=== PATIENT | female | born 1985 | race Caucasian/White ===

== ENCOUNTER 2018-12-08 22:21 | Outpatient (CLI) | payer MEDICAID | END 2018-12-08 22:51 | disposition home or self-care (01) | LOC: OBT 22:21 → L-D 22:23 → OBT 22:51 | DX: O26.893 Other specified pregnancy related conditions, third trimester (principal); R07.9 Chest pain, unspecified; R06.02 Shortness of breath; O36.8130 Decreased fetal movements, third trimester, not applicable or unspecified; Z3A.31 31 weeks gestation of pregnancy | CPT/HCPCS: 76818 ==

== ENCOUNTER 2018-12-08 23:09 | Emergency (ER) | payer MEDICAID ==
[2018-12-09 00:02] LABS: ADD MAN DIFF? NO
[2018-12-09 00:04] LABS: BASOPHILS % 0.4 % (0.0-2.0); EOSINOPHILS # 0.2 10^3/ul (0.0-0.5); EOSINOPHILS % 2.1 % (0.0-7.0); HEMATOCRIT 32.6 % (37.0-47.0); HEMOGLOBIN 10.5 g/dl (12.0-16.0); LYMPHOCYTES # 2.4 10^3/ul (0.8-2.9); LYMPHOCYTES % 23.2 % (15.0-51.0); MEAN CORPUSCULAR HEMOGLOBIN 27.6 pg (29.0-33.0); MEAN CORPUSCULAR HGB CONC 32.2 g/dl (32.0-37.0); MEAN CORPUSCULAR VOLUME 85.8 fl (82.0-101.0); MEAN PLATELET VOLUME 12.1 fl (7.4-10.4); MONOCYTE # 0.9 10^3/ul (0.3-0.9); MONOCYTES % 8.4 % (0.0-11.0); NEUTROPHIL # 6.7 10^3/ul (1.6-7.5); NEUTROPHILS % 64.4 % (39.0-77.0); PLATELET COUNT 197 10^3/UL (140-415); RED CELL DISTRIBUTION WIDTH 13.9 % (11.5-14.5)
[2018-12-09 00:04] LABS: WHITE BLOOD COUNT 10.3 10^3/ul (4.8-10.8)
[2018-12-09 00:26] LABS: ALBUMIN 3.3 g/dl (3.3-4.9); ALBUMIN/GLOBULIN RATIO 0.97; ALKALINE PHOSPHATASE 107 IU/L (42-121); ANION GAP 6 (5-13); ASPARTATE AMINO TRANSFERASE 16 IU/L (15-46); BILIRUBIN,INDIRECT 0.3 mg/dl (0-1.1); BILIRUBIN,TOTAL 0.3 mg/dl (0.2-1.3); BLOOD UREA NITROGEN 4 mg/dl (7-20); CALCIUM 8.9 mg/dl (8.4-10.2); CARBON DIOXIDE 26 mmol/L (21-31); CHLORIDE 107 mmol/L (97-110); CREATININE 0.46 mg/dl (0.44-1.00); Estimated GFR > 60 mL/min (>60); GLUCOSE 88 mg/dl (70-220); POTASSIUM 3.6 mmol/L (3.5-5.1); SODIUM 139 mmol/L (135-144); TOTAL PROTEIN 6.7 g/dl (6.1-8.1)
[2018-12-09 00:35] LABS: ALANINE AMINOTRANSFERASE 11 IU/L (13-69)
[2018-12-09 00:37] LABS: TROPONIN-I < 0.012 ng/ml (0.000-0.120)
== END 2018-12-09 01:31 | disposition home or self-care (01) ==
LOC: E/R 12-09 01:31
DX: R07.9 Chest pain, unspecified (principal); R40.2142 Coma scale, eyes open, spontaneous, at arrival to emergency department; R40.2252 Coma scale, best verbal response, oriented, at arrival to emergency department; R40.2362 Coma scale, best motor response, obeys commands, at arrival to emergency department
CPT/HCPCS: 80053; 84484; 85025; 93005; 99284-25

== ENCOUNTER 2019-02-05 12:37 | Inpatient (IN) | payer MEDICAID ==
[2019-02-05] MEDS: OXYTOCIN 30 UNITS/LR 500 ML IV ×2 (07:00→21:01)
[2019-02-05] MEDS ORDERED: CARBOPROST 250 MCG INJ IM ×2 (14:30→22:30)
[2019-02-05] MEDS ORDERED: OXYTOCIN 30 UNITS/LR 500 ML IV ×2 (14:30→22:30)
[2019-02-05] MEDS ORDERED: MISOPROSTOL 200 MCG TAB PR ×2 (14:30→22:30)
[2019-02-05] MEDS ORDERED: CEFAZOLIN 2 GM/50 ML (PMX) 50 ML IVPB (14:30)
[2019-02-05] MEDS ORDERED: METHYLERGONOVINE 0.2 MG INJ IM ×2 (14:30→22:30)
[2019-02-05 14:37] LABS: ADD MAN DIFF? NO
[2019-02-05 14:40] LABS: WHITE BLOOD COUNT 10.2 10^3/ul (4.8-10.8)
[2019-02-05 14:40] LABS: BASOPHILS % 0.3 % (0.0-2.0); EOSINOPHILS # 0.1 10^3/ul (0.0-0.5); EOSINOPHILS % 1.1 % (0.0-7.0); HEMATOCRIT 34.6 % (37.0-47.0); HEMOGLOBIN 10.6 g/dl (12.0-16.0); LYMPHOCYTES # 2.3 10^3/ul (0.8-2.9); LYMPHOCYTES % 22.8 % (15.0-51.0); MEAN CORPUSCULAR HEMOGLOBIN 25.4 pg (29.0-33.0); MEAN CORPUSCULAR HGB CONC 30.6 g/dl (32.0-37.0); MEAN PLATELET VOLUME 12.9 fl (7.4-10.4); MONOCYTE # 0.7 10^3/ul (0.3-0.9); MONOCYTES % 7.2 % (0.0-11.0); NEUTROPHIL # 6.9 10^3/ul (1.6-7.5); NEUTROPHILS % 67.4 % (39.0-77.0); PLATELET COUNT 163 10^3/UL (140-415); RED BLOOD COUNT 4.17 10^6/ul (4.20-5.40); RED CELL DISTRIBUTION WIDTH 15.8 % (11.5-14.5)
[2019-02-05] MEDS: LACTATED RINGER'S 1,000 ML IV ×2 (14:45→15:00)
[2019-02-05 14:59] LABS: INR 0.93; PARTIAL THROMBOPLASTIN TIME 26.7 Sec (23.0-35.0); PROTIME 12.6 Sec (11.9-14.9)
[2019-02-05 15:29] LABS: HEPATITIS B SURFACE ANTIGEN NEGATIVE (NEGATIVE)
[2019-02-05] MEDS ORDERED: ONDANSETRON 4 MG INJ IV ×2 (17:30)
[2019-02-05] MEDS ORDERED: HYDROmorphONE 0.5 MG/0.5 ML SYG IV ×2 (17:30)
[2019-02-05] MEDS ORDERED: METOCLOPRAMIDE 10 MG INJ IV (17:30)
[2019-02-05] MEDS ORDERED: NALOXONE (0.4 MG/ML) INJ IV (17:30)
[2019-02-05] MEDS ORDERED: ALBUTEROL 0.083% (NEB) 2.5 MG/3 ML AMP HHN (17:30)
[2019-02-05] MEDS ORDERED: HYDROmorphONE 1 MG/5 ML IV SYRINGE IV ×2 (17:30)
[2019-02-05] MEDS ORDERED: FENTAnyl 50 MCG/ML VIAL IV ×2 (17:30)
[2019-02-05] MEDS ORDERED: DIPHENHYDRAMINE 50 MG INJ IV ×2 (17:30)
[2019-02-05] MEDS ORDERED: KETOROLAC 30 MG INJ IV (17:30)
[2019-02-05] MEDS: ONDANSETRON 4 MG INJ IV (18:21)
[2019-02-05] MEDS: METOCLOPRAMIDE 10 MG INJ IV (18:21)
[2019-02-05] MEDS ORDERED: PHENYLephrine (100 MCG/ML) 10ML SYG (18:28)
[2019-02-05] MEDS ORDERED: EPHEDrine 25 MG/5 ML SYG (18:28)
[2019-02-05] MEDS ORDERED: morphine SULFATE/PF (10 MG/10 ML) INJ (18:28)
[2019-02-05] MEDS: KETOROLAC 30 MG INJ IV (20:56)
[2019-02-05] MEDS ORDERED: METHYLERGONOVINE 0.2 MG TAB PO (22:30)
[2019-02-06] MEDS: DEXTROSE 5%-LR 1,000 ML IV ×4 (01:18→14:20)
[2019-02-06 08:00] LABS: ADD MAN DIFF? NO
[2019-02-06 08:03] LABS: WHITE BLOOD COUNT 9.1 10^3/ul (4.8-10.8)
[2019-02-06 08:03] LABS: ABNORMAL IP MESSAGE 1; BASOPHILS % 0.2 % (0.0-2.0); EOSINOPHILS % 0.3 % (0.0-7.0); HEMATOCRIT 30.4 % (37.0-47.0); HEMOGLOBIN 9.4 g/dl (12.0-16.0); LYMPHOCYTES # 1.5 10^3/ul (0.8-2.9); LYMPHOCYTES % 16.2 % (15.0-51.0); MEAN CORPUSCULAR HEMOGLOBIN 25.4 pg (29.0-33.0); MEAN CORPUSCULAR HGB CONC 30.9 g/dl (32.0-37.0); MEAN CORPUSCULAR VOLUME 82.2 fl (82.0-101.0); MEAN PLATELET VOLUME 13.1 fl (7.4-10.4); MONOCYTE # 0.6 10^3/ul (0.3-0.9); MONOCYTES % 6.3 % (0.0-11.0); NEUTROPHIL # 6.9 10^3/ul (1.6-7.5); NEUTROPHILS % 76.1 % (39.0-77.0); PLATELET COUNT 143 10^3/UL (140-415); RED CELL DISTRIBUTION WIDTH 15.8 % (11.5-14.5)
[2019-02-06 08:04] LABS: POSITIVE DIFF @See below
[2019-02-06] MEDS: SENNA/DOCUSATE NA (8.6MG/50MG) TAB PO ×2 (09:10→21:56)
[2019-02-06] MEDS: FERROUS SULFATE (EC) 325 MG TAB PO (10:59)
[2019-02-06] MEDS: ASCORBIC ACID 500 MG TAB PO (10:59)
[2019-02-06] MEDS ORDERED: DIPHTH/TET/ACEL PERTUSS (ADULT) 0.5 ML VIAL IM* (11:00)
[2019-02-06] MEDS: KETOROLAC 30 MG INJ IV (14:31)
[2019-02-06 16:13] LABS: RAPID PLASMA REAGIN NONREACTIVE (NR)
[2019-02-06] MEDS: HYDROCODONE/APAP (5/325) TAB PO (21:56)
[2019-02-06] MEDS: IBUPROFEN 800 MG TAB PO (21:57)
[2019-02-07] MEDS: MAGNESIUM HYDROXIDE 30ML CUP PO (06:03)
[2019-02-07] MEDS: HYDROCODONE/APAP (5/325) TAB PO ×5 (06:05→22:05)
[2019-02-07] MEDS: LANOLIN HPA 1 PKT TOP (06:23)
[2019-02-07] MEDS: DEXTROSE 5%-LR 1,000 ML IV ×3 (07:00→22:20)
[2019-02-07] MEDS: SENNA/DOCUSATE NA (8.6MG/50MG) TAB PO ×2 (10:01→22:05)
[2019-02-07] MEDS: FERROUS SULFATE (EC) 325 MG TAB PO (10:01)
[2019-02-07] MEDS: ASCORBIC ACID 500 MG TAB PO (10:01)
[2019-02-08] MEDS: HYDROCODONE/APAP (5/325) TAB PO ×4 (03:34→15:20)
[2019-02-08] MEDS: DEXTROSE 5%-LR 1,000 ML IV ×2 (06:20→14:20)
[2019-02-08] MEDS: SENNA/DOCUSATE NA (8.6MG/50MG) TAB PO (07:28)
[2019-02-08] MEDS: MAGNESIUM HYDROXIDE 30ML CUP PO (07:28)
[2019-02-08 08:02] LABS: ADD MAN DIFF? NO
[2019-02-08 08:10] LABS: BASOPHILS % 0.5 % (0.0-2.0); EOSINOPHILS # 0.2 10^3/ul (0.0-0.5); EOSINOPHILS % 2.9 % (0.0-7.0); HEMATOCRIT 30.6 % (37.0-47.0); HEMOGLOBIN 9.4 g/dl (12.0-16.0); LYMPHOCYTES # 2.4 10^3/ul (0.8-2.9); LYMPHOCYTES % 28.4 % (15.0-51.0); MEAN CORPUSCULAR HEMOGLOBIN 25.5 pg (29.0-33.0); MEAN CORPUSCULAR HGB CONC 30.7 g/dl (32.0-37.0); MEAN CORPUSCULAR VOLUME 82.9 fl (82.0-101.0); MEAN PLATELET VOLUME 12.5 fl (7.4-10.4); MONOCYTE # 0.7 10^3/ul (0.3-0.9); NEUTROPHIL # 4.9 10^3/ul (1.6-7.5); NEUTROPHILS % 58.9 % (39.0-77.0); PLATELET COUNT 183 10^3/UL (140-415); RED BLOOD COUNT 3.69 10^6/ul (4.20-5.40); RED CELL DISTRIBUTION WIDTH 16.1 % (11.5-14.5)
[2019-02-08 08:10] LABS: WHITE BLOOD COUNT 8.4 10^3/ul (4.8-10.8)
[2019-02-08 08:41] LABS: ALANINE AMINOTRANSFERASE 29 IU/L (13-69); ALBUMIN 2.8 g/dl (3.3-4.9); ALKALINE PHOSPHATASE 123 IU/L (42-121); ANION GAP 4 (5-13); ASPARTATE AMINO TRANSFERASE 43 IU/L (15-46); BILIRUBIN,INDIRECT 0.3 mg/dl (0-1.1); BILIRUBIN,TOTAL 0.3 mg/dl (0.2-1.3); BLOOD UREA NITROGEN 3 mg/dl (7-20); CALCIUM 8.3 mg/dl (8.4-10.2); CARBON DIOXIDE 29 mmol/L (21-31); CHLORIDE 104 mmol/L (97-110); CREATININE 0.52 mg/dl (0.44-1.00); Estimated GFR > 60 mL/min (>60); GLUCOSE 78 mg/dl (70-220); POTASSIUM 3.5 mmol/L (3.5-5.1); SODIUM 137 mmol/L (135-144); TOTAL PROTEIN 5.9 g/dl (6.1-8.1)
[2019-02-08] MEDS: MEASLES,MUMPS,RUBELLA VACCINE INJ SC* (09:00)
[2019-02-08] MEDS: ASCORBIC ACID 500 MG TAB PO (10:38)
[2019-02-08] MEDS: DIPHTH/TET/ACEL PERTUSS (ADULT) 0.5 ML VIAL IM* (10:39)
[2019-02-08] MEDS: FERROUS SULFATE (EC) 325 MG TAB PO (12:38)
== END 2019-02-08 17:30 | disposition home or self-care (01) | DRG 787 ==
LOC: OBT 12:37 → L-D 12:39 → OBT 14:10 → L-D 14:15 → PP1 22:16
PROVIDERS: Obstetrics & Gynecology
PROC: 10D00Z1 Extraction of Products of Conception, Low, Open Approach (ICD-10-PCS; principal; 2019-02-05 19:00)
PROC: 3E033VJ Introduction of Other Hormone into Peripheral Vein, Percutaneous Approach (ICD-10-PCS; 2019-02-05 19:00)
DX: O65.5 Obstructed labor due to abnormality of maternal pelvic organs (principal); D62 Acute posthemorrhagic anemia; O34.211 Maternal care for low transverse scar from previous cesarean delivery; O99.214 Obesity complicating childbirth; O76 Abnormality in fetal heart rate and rhythm complicating labor and delivery; O99.02 Anemia complicating childbirth; Z37.0 Single live birth; Z3A.38 38 weeks gestation of pregnancy
CPT/HCPCS: 76818; 80053; 85025; 85610; 85730; 86592; 86850; 86900; 86901; 87340; 90715; 93970; 99464